=== PATIENT | female | born 1980 | race Caucasian/White ===

== ENCOUNTER 2018-11-10 12:17 | Outpatient (CLI) | payer BC, OTHER | END 2018-11-10 23:59 | disposition home or self-care (01) | LOC: STAR 12:17 | PROVIDERS: ATTEND Specialist | DX: Z02.9 Encounter for administrative examinations, unspecified (principal) ==

== ENCOUNTER 2018-11-14 07:42 | Day surgery (SDC) | payer BC, OTHER ==
[~2018-11-14] VITALS: Ht 172.7 cm; Wt 74.1 kg
[~2018-11-14 07:42] MED LIST: NORG1TAB67 PO
[2018-11-14] MEDS ORDERED: LACTATED RINGERS 1,000 ML IV SCH (07:56)
[2018-11-14] MEDS ORDERED: GABAPENTIN 300 MG CAPSULE PO ONE (08:00)
[2018-11-14] MEDS ORDERED: ACETAMINOPHEN 500 MG TABLET PO ONE (08:00)
[2018-11-14 08:14] VITALS: BP 104/73
[2018-11-14] MEDS ORDERED: INDIGO CARMINE 0.8%, 5ML ONE (09:25)
[2018-11-14] MEDS ORDERED: PROMETHAZINE 25 MG/ML, 1ML IV PRN (09:30)
[2018-11-14] MEDS ORDERED: PROCHLORPERAZINE 5 MG/ML, 2ML IV PRN (09:30)
[2018-11-14] MEDS ORDERED: FENTANYL PF 100 MCG/2ML IV PRN (09:30)
[2018-11-14] MEDS ORDERED: HALOPERIDOL 5 MG/ML IV PRN (09:30)
[2018-11-14] MEDS ORDERED: OXYcodone 5 MG/5 ML ORAL.SOL UDC PO PRN (09:30)
[2018-11-14] MEDS ORDERED: LABETALOL 5MG/ML, 20ML IV PRN (09:30)
[2018-11-14] MEDS ORDERED: DIPHENHYDRAMINE 50 MG/ML, 1ML IVPush PRN (09:30)
[2018-11-14] MEDS ORDERED: MEPERIDINE/PF 25MG/0.5ML IVPush PRN (09:30)
[2018-11-14] MEDS ORDERED: METOPROLOL 1 MG/ML, 5ML IV PRN (09:30)
[2018-11-14] MEDS ORDERED: hydrALAzine 20 MG/ML, 1ML IV PRN (09:30)
[2018-11-14] MEDS ORDERED: HYDROmorphone 2 MG/ML, 1ML IVPush PRN (09:30)
[2018-11-14 09:45] LABS: HCG UR SG 1.023 (1.003-1.030)
[2018-11-14] MEDS ORDERED: SUCCINYLCHOLINE 20 MG/ML, 10ML ONE (09:50)
[2018-11-14] MEDS ORDERED: NEOSTIGMINE 1 MG/ML, 10ML ONE (09:50)
[2018-11-14] MEDS ORDERED: PROPOFOL 10 MG/ML, 20ML ONE (09:50)
[2018-11-14] MEDS ORDERED: GLYCOPYRROLATE 0.2MG/1ML, 5ML ONE (09:50)
[2018-11-14] MEDS ORDERED: ONDANSETRON 2MG/ML, 2ML ONE (09:50)
[2018-11-14] MEDS ORDERED: DEXAMETHASONE 4 MG/ML, 1ML ONE (09:50)
[2018-11-14] MEDS ORDERED: ROCURONIUM 10 MG/ML,10ML ONE (09:50)
[2018-11-14] MEDS ORDERED: CEFAZOLIN 1,000 MG ONE (09:50)
== END 2018-11-14 18:15 | disposition home or self-care (01) ==
LOC: OUT 07:42
PROVIDERS: ATTEND Specialist
DX: N80.3 Endometriosis of pelvic peritoneum (principal); N80.0 Endometriosis of uterus; D25.1 Intramural leiomyoma of uterus; N72 Inflammatory disease of cervix uteri; N88.8 Other specified noninflammatory disorders of cervix uteri; N73.6 Female pelvic peritoneal adhesions (postinfective); Z88.2 Allergy status to sulfonamides; Z83.3 Family history of diabetes mellitus; Z84.2 Family history of other diseases of the genitourinary system
CPT/HCPCS: 58571; 81025; 88307; J0330; J0690; J1100; J1200; J2250; J2405; J2704; J2710; J3010; J3490; J7120; S2900